=== PATIENT | female | born 1940 | race Hispanic/Latino ===

== ENCOUNTER 2017-09-15 20:14 | Emergency (ER) | payer MEDICARE ==
[2017-09-15 20:15] VITALS: BMI 24.1
[2017-09-15 20:24] VITALS: RESP 18
--- NOTE | 2017-09-15 21:28 | ED PDOC ---
HPI: Trauma/Fall - HPI Time Seen by Provider: 09/15/17 20:59 Chief Complaint (Nursing): Trauma Chief Complaint (Provider): Fall injury History Per: Patient History/Exam Limitations: no limitations Onset/Duration Of Symptoms: Hrs (today) Injury Occurred (Timing): Just Before Arrival Location Of Injury: Right: Arm, Shoulder Additional Complaint(s): Kendra Orona is a 77 year old female, with a past medical history of hypertension and diabetes, who was brought to the emergency department by EMS for right shoulder pain s/p fall onset prior to arrival. Patient reports she was walking when she accidentally tripped on the sidewalk and landed on her right shoulder. Patient states she also scraped her left hand but denies any head injuries, dizziness, weakness, numbness or tingling, abdominal pain, nausea , vomit, diarrhea, chest pain or shortness of breath. No further medical complaints. No neck pain. PMD: Jluis Abarca V - Fall Fall:Prior To Injury: Tripped Past Medical History Reviewed: Historical Data, Nursing Documentation, Vital Signs Vital Signs: Last Vital Signs Temp 98.3 F 09/15/17 20:21 Pulse 66 09/15/17 20:21 Resp 18 09/15/17 20:21 BP 195/95 H 09/15/17 20:21 Pulse Ox 98 09/15/17 21:43 - Medical History PMH: Diabetes ("Prediabetes"), HTN, Hyperlipidemia - Surgical History Other surgeries: hip fracture repair - Family History Family History: States: Unknown Family Hx - Home Medications Home Medications: Ambulatory Orders Medication Instructions Recorded Ibuprofen [Motrin] 600 mg PO TID 7 Days tab 09/15/17 oxyCODONE/Acetaminophen [Percocet 1 ea PO BID PRN #8 tab 09/15/17 5/325 mg Tab] - Allergies Allergies/Adverse Reactions: Allergies Allergy/AdvReac Type Severity Reaction Status Date / Time clindamycin Allergy RASH Verified 12/23/15 01:52 erythromycin base Allergy RASH Verified 12/23/15 01:52 Review of Systems ROS Statement: Except As Marked, All Systems Reviewed And Found Negative Cardiovascular: Negative for: Chest Pain Respiratory: Negative for: Shortness of Breath Gastrointestinal: Negative for: Nausea, Vomiting, Abdominal Pain, Diarrhea Musculoskeletal: Positive for: Shoulder Pain (right ) Neurological: Negative for: Weakness, Numbness (or tingling), Dizziness Physical Exam - Reviewed Nursing Documentation Reviewed: Yes Vital Signs Reviewed: Yes - Physical Exam Appears: Positive for: Non-toxic, No Acute Distress Head Exam: Positive for: ATRAUMATIC, NORMOCEPHALIC Skin: Positive for: Normal Color, Warm, Dry Eye Exam: Positive for: Normal appearance, EOMI, PERRL Neck: Positive for: Painless ROM, Supple (nontender) Cardiovascular/Chest: Positive for: Regular Rate, Rhythm. Negative for: Murmur Respiratory: Positive for: Normal Breath Sounds. Negative for: Respiratory Distress Pulses-Radial (L): 2+ Pulses-Radial (R): 2+ Gastrointestinal/Abdominal: Positive for: Normal Exam, Soft. Negative for: Tenderness Back: Negative for: L CVA Tenderness, R CVA Tenderness, Vertebral Tenderness Extremity: Positive for: Normal ROM (elbow and shoulder ), Tenderness ( Tenderness to right bicep. No elbow, shoulder, forearm, wrist or hand tenderness.), Other (left hand dorsal 2nd & 3rd digit knuckles hematoma and abrasions with good radial pulse; nontender.). Negative for: Deformity, Swelling Neurologic/Psych: Positive for: Alert, Oriented (x3). Negative for: Motor/ Sensory Deficits - ECG O2 Sat by Pulse Oximetry: 98 (RA) Pulse Ox Interpretation: Normal - Radiology X-Ray: Interpreted by Me, Viewed By Me X-Ray Interpretation: Fracture - Progress ED Course And Treament: 2235: Stable. AAOx3. Pain controlled. Dr. Bro reviewed images. Wants pt. to be put in a sling and fu in office. PM Aware reviewed. No search results for pt. Aware of possible or decreased functioning from opiate addiction. Medical Decision Making Medical Decision Making: Time: 20:59 Initial Impression: Fall injuries Initial Plan: --Motrin tab 600 mg PO --Humerus Right [RAD] --Shoulder right [RAD] --Reevaluation ~ Scribe Attestation: Documented by Mega Tobar, acting as a scribe for Roger Griffith MD. Provider Scribe Attestation: All medical record entries made by the Scribe were at my direction and personally dictated by me. I have reviewed the chart and agree that the record accurately reflects my personal performance of the history, physical exam, medical decision making, and the department course for this patient. I have also personally directed, reviewed, and agree with the discharge instructions and disposition. Procedures - Splinting Location: R arm Pre-Made Type: sling R arm Pre-Proc Neuro Vasc Exam: normal Post-Proc Neuro Vasc Exam: normal Progress: Tolerated well. Disposition - Clinical Impression Clinical Impression: Abrasion, Shoulder fracture - Patient ED Disposition Is Patient to be Admitted: No Counseled Patient/Family Regarding: Studies Performed, Diagnosis, Need For Followup, Rx Given - Disposition Referrals: [facility] [Outside] - 09/16/17 Rikki Bro MD [Staff Provider] - 09/16/17 Disposition: Routine/Home Disposition Time: 22:39 Condition: STABLE Additional Instructions: Return if not better in 3 days. See the orthopedic doctor in 3 days. You are aware of opiate abuse potential and you can from that. Be mindful in using the percocet. Prescriptions: Ibuprofen [Motrin] 600 mg PO TID 7 Days tab oxyCODONE/Acetaminophen [Percocet 5/325 mg Tab] 1 ea PO BID PRN #8 tab PRN Reason: Muscle Pain Instructions: Shoulder Fracture Forms: [facility] (Grenadian)
[2017-09-15] MEDS ORDERED: Oxycodone/Acetaminophen 5/325 mg Tab PO ONE (22:21)
[2017-09-16 01:46] VITALS: BP 142/78; PULSE 68; TEMP 98.4; O2SAT 99
--- NOTE | 2017-09-16 09:35 | RAD ---
PROCEDURE: Radiographs of the right humerus. HISTORY: fall and pain COMPARISON: None. FINDINGS: BONES: Comminuted fracture of the proximal humeral metaphysis with angulation and displacement of the greater and lesser tuberosities. SOFT TISSUES: Normal. OTHER FINDINGS: None. IMPRESSION: Comminuted, angulated, displaced fracture of the proximal humerus as described above.
--- NOTE | 2017-09-16 09:36 | RAD ---
PROCEDURE: Radiographs of the Right Shoulder HISTORY: shoulder pain COMPARISON: No prior. FINDINGS: BONES: Comminuted, angulated fracture of the proximal humeral metaphysis with displacement of the greater and lesser tuberosities. JOINTS: Degenerative changes. SOFT TISSUES: Normal. OTHER FINDINGS: None. IMPRESSION: Comminuted, angulated, displaced fracture of the proximal humerus as described above.
== END 2017-09-16 01:20 | disposition home or self-care (01) ==
LOC: H.ER 20:14
DX: S42.91XA Fracture of right shoulder girdle, part unspecified, initial encounter for closed fracture (principal); W01.0XXA Fall on same level from slipping, tripping and stumbling without subsequent striking against object, initial encounter; Y92.480 Sidewalk as the place of occurrence of the external cause; E11.9 Type 2 diabetes mellitus without complications; E78.5 Hyperlipidemia, unspecified; I10 Essential (primary) hypertension; Z88.1 Allergy status to other antibiotic agents

== ENCOUNTER 2018-02-04 17:10 | Emergency (ER) | payer MEDICARE ==
[2018-02-04 17:17] VITALS: BP 152/83; PULSE 76; RESP 16; TEMP 98; O2SAT 98
[2018-02-04 17:18] VITALS: BMI 23.9
--- NOTE | 2018-02-04 17:49 | ED PDOC ---
HPI: Trauma/Fall - HPI Time Seen by Provider: 02/04/18 17:29 Chief Complaint (Nursing): Trauma Chief Complaint (Provider): Trauma History Per: Patient History/Exam Limitations: no limitations Injury Occurred (Timing): Just Before Arrival Location Of Injury: Left: Hip Additional Complaint(s): Kendra Orona is a 77 year old female with a past medical history of arrhythmias, heart attacks, HLD, and HTN, who presents to the emergency department for a left hip injury after sustaining a fall. Patient states she was at a [employer] service when she was using her walker and leaning against a door. She states that a bystander opened the door she was leaning on, causing her to fall on her side and injure her left hip. Patient states she was worried because she felt soreness and pain on her left hip area close to where she had a prior surgery. Patient is able to walk and put weight on the leg. She denies hitting her head, shortness of breath, loss of consciousness, abdominal pain or vomiting. PMD: Radha Abarca - Fall Fall:Prior To Injury: Lost Balance. denies: Passed Out Past Medical History Reviewed: Historical Data, Nursing Documentation, Vital Signs Vital Signs: Last Vital Signs Temp 98 F 02/04/18 17:17 Pulse 76 02/04/18 17:17 Resp 16 02/04/18 17:17 BP 152/83 H 02/04/18 17:17 Pulse Ox 98 02/04/18 17:17 - Medical History PMH: Asthma, Cardia Arrhythmia, Diabetes ("Prediabetes"), Fractures, HTN, Hyperlipidemia - Surgical History Other surgeries: right arm and left leg surgery. left sided mastectomy - Family History Family History: States: Unknown Family Hx - Home Medications Home Medications: Ambulatory Orders Medication Instructions Recorded Ibuprofen [Motrin] 600 mg PO TID 7 Days tab 09/15/17 oxyCODONE/Acetaminophen [Percocet 1 ea PO BID PRN #8 tab 09/15/17 5/325 mg Tab] - Allergies Allergies/Adverse Reactions: Allergies Allergy/AdvReac Type Severity Reaction Status Date / Time clindamycin Allergy RASH Verified 12/23/15 01:52 erythromycin base Allergy RASH Verified 12/23/15 01:52 Review of Systems ROS Statement: Except As Marked, All Systems Reviewed And Found Negative Respiratory: Negative for: Shortness of Breath Gastrointestinal: Negative for: Vomiting, Abdominal Pain Musculoskeletal: Positive for: Leg Pain (left upper leg pain with soreness ) Neurological: Negative for: Numbness, Headache, Dizziness Physical Exam - Reviewed Nursing Documentation Reviewed: Yes Vital Signs Reviewed: Yes - Physical Exam Appears: Positive for: Non-toxic, No Acute Distress Head Exam: Positive for: ATRAUMATIC, NORMOCEPHALIC Skin: Positive for: Normal Color, Warm, Dry Eye Exam: Positive for: Normal appearance, EOMI, PERRL Neck: Positive for: Normal, Painless ROM, Supple Cardiovascular/Chest: Positive for: Regular Rate, Rhythm. Negative for: Murmur Respiratory: Positive for: Normal Breath Sounds. Negative for: Respiratory Distress Pulses-Dorsalis Pedis (L): 2+ Pulses-Dorsalis Pedis (R): 2+ Gastrointestinal/Abdominal: Positive for: Normal Exam, Soft. Negative for: Tenderness Pelvic Exam: Positive for: Other (Good ROM; tenderness on left hip; pain on rotation of left hip; ) Back: Positive for: Normal Inspection. Negative for: L CVA Tenderness, R CVA Tenderness, Vertebral Tenderness Extremity: Positive for: Normal ROM, Tenderness (mild left hip with full ROM; ). Negative for: Deformity Neurologic/Psych: Positive for: Alert, Oriented (x3). Negative for: Motor/Sensory Deficits - ECG O2 Sat by Pulse Oximetry: 98 (RA) Pulse Ox Interpretation: Normal - Progress ED Course And Treament: 1859: Stable. AAOx3. Pain free. Tolerated PO. Did not want pain meds. Ambulated with no issues. Medical Decision Making Medical Decision Making: Initial Time: 17:40 Initial Plan: --Left Hip x-ray Scribe Attestation: Documented by Dheeraj Linares, acting as a scribe for Roger Griffith MD. Provider Scribe Attestation: All medical record entries made by the Scribe were at my direction and personally dictated by me. I have reviewed the chart and agree that the record accurately reflects my personal performance of the history, physical exam, medical decision making, and the department course for this patient. I have also personally directed, reviewed, and agree with the discharge instructions and disposition. Disposition - Clinical Impression Clinical Impression: Hip injury - Patient ED Disposition Is Patient to be Admitted: No Counseled Patient/Family Regarding: Studies Performed, Diagnosis, Need For Followup - Disposition Referrals: Radha Abarca MD [Primary Care Provider] - 02/06/18 Disposition: Routine/Home Disposition Time: 19:00 Condition: STABLE Additional Instructions: Return if not better in 3 days. Instructions: Hip Pain Forms: [facility] (Korean)
--- NOTE | 2018-02-05 15:37 | RAD ---
PROCEDURE: Frontal view of the pelvis and frontal/frogleg lateral views of the left hip performed. HISTORY: pain COMPARISON: None. FINDINGS: BONES: Redemonstrated is a compression screw traversing the left femoral neck attached to a intramedullary fixation tanya left femur. Hardware intact. No evidence of acute displaced fracture nor dislocation. JOINTS: Degenerative changes both hip joints. SOFT TISSUES: Normal. OTHER FINDINGS: None. IMPRESSION: Redemonstrated is a compression screw traversing the left femoral neck attached to a intramedullary fixation tanya left femur. Hardware intact. No evidence of acute displaced fracture nor dislocation... Degenerative changes both hip joints.
== END 2018-02-04 19:15 | disposition home or self-care (01) ==
LOC: H.ER 17:10 → SUPCPDRO 17:10 → H.ER 19:15
DX: S79.912A Unspecified injury of left hip, initial encounter (principal); J45.909 Unspecified asthma, uncomplicated; E11.9 Type 2 diabetes mellitus without complications; I10 Essential (primary) hypertension; Z88.1 Allergy status to other antibiotic agents; E78.5 Hyperlipidemia, unspecified; W18.39XA Other fall on same level, initial encounter; Y92.22 Religious institution as the place of occurrence of the external cause

== ENCOUNTER 2018-03-14 17:09 | Observation (INO) | payer MEDICARE ==
[2018-03-14 17:09] VITALS: BMI 23.9
[2018-03-14 18:34] LABS: ALB/GLOB RATIO 1.4 (1.0-2.1); ALBUMIN 4.3 g/dL (3.5-5.0); CALCIUM 9.5 mg/dL (8.4-10.2)
[2018-03-14 18:39] LABS: BASO % 0.6 % (0.0-2.0); EOS # 0.2 K/uL (0.0-0.7); EOS % 3.1 % (0.0-4.0); HEMOGLOBIN 10.7 g/dL (12.0-16.0); LYMPH # 1.2 K/uL (1.0-4.3); LYMPH % 17.4 % (20.0-40.0); MEAN CELL VOLUME 92.8 fl (81.0-99.0); MEAN CORPUSCULAR HEMOGLOBIN 30.5 pg (27.0-31.0); MEAN CORPUSCULAR HGB CONC 32.9 g/dL (33.0-37.0); MEAN PLATELET VOLUME 8.3 fl (7.2-11.7); MONO # 0.6 K/uL (0.0-0.8); MONO % 8.5 % (0.0-10.0); NEUT # 4.8 K/uL (1.8-7.0); NEUT % 70.4 % (50.0-75.0); RBC 3.49 Mil/uL (3.80-5.20); RED CELL DISTRIBUTION WIDTH 15.7 % (11.5-14.5); WHITE BLOOD COUNT 6.8 K/uL (4.8-10.8)
[2018-03-14 18:43] LABS: INR 0.9; PROTHROMBIN TIME 10.7 Seconds (9.8-13.1)
[2018-03-14 18:46] LABS: PARTIAL THROMBOPLASTIN TIME 30.2 Seconds (25.6-37.1)
--- NOTE | 2018-03-14 18:48 | ED PDOC ---
HPI: Female Pain Time Seen by Provider: 03/14/18 17:50 Chief Complaint (Nursing): GI Problem Chief Complaint (Provider): GI Problem History Per: Patient History/Exam Limitations: no limitations Onset/Duration Of Symptoms: Sudden Onset Current Symptoms Are (Timing): Better Additional Complaint(s): 78 year old female with pmHx of HTN, DM, and CAD, presents to the ED for an evaluation after finding blood upon wiping herself after a bowel movement prior to arrival. Patient reports that some blood dripped onto the floor but eventually stopped on its own. She denies any rectal pain, abdominal pain, constipation, diarrhea, fever, chills, dysuria, hematuria, prior similar symptoms, vaginal pain or discharge. She further denies any recent colonoscopy. PCP: none provided Cardio: Dr. Jluis Abarca Past Medical History Reviewed: Historical Data, Nursing Documentation, Vital Signs Vital Signs: Last Vital Signs Temp 98.2 F 03/14/18 17:20 Pulse 84 03/14/18 17:20 Resp 18 03/14/18 17:20 BP 158/89 H 03/14/18 17:20 Pulse Ox 98 03/14/18 17:20 - Medical History PMH: Asthma, Cardia Arrhythmia, Diabetes ("Prediabetes"), Fractures (right hip/ right shoulder), HTN, Hyperlipidemia, Malignancy (left breast CA) Denies: Chronic Kidney Disease - Surgical History Other surgeries: right shoulder; left hip; left mastectomy - Family History Family History: States: Unknown Family Hx - Home Medications Home Medications: Ambulatory Orders Medication Instructions Recorded Aspirin [Lo-Dose Aspirin EC] 81 mg PO DAILY 03/14/18 Lisinopril/Hydrochlorothiazide 1 each PO DAILY 03/14/18 [Lisinopril-Hctz 10-12.5 mg Tab] RX: Atorvastatin [Lipitor] 40 mg PO DAILY 03/14/18 RX: Metoprolol Succinate XL 25 mg PO DAILY 03/14/18 [Toprol XL] RX: metFORMIN [glucOPHAGE] 500 mg PO BID 03/14/18 - Allergies Allergies/Adverse Reactions: Allergies Allergy/AdvReac Type Severity Reaction Status Date / Time clindamycin Allergy RASH Verified 12/23/15 01:52 erythromycin base Allergy RASH Verified 12/23/15 01:52 pregabalin [From Lyrica] Allergy RASH Verified 03/14/18 17:20 Review of Systems ROS Statement: Except As Marked, All Systems Reviewed And Found Negative Constitutional: Negative for: Fever, Chills Gastrointestinal: Negative for: Abdominal Pain, Diarrhea, Constipation, Rectal Pain Genitourinary Female: Negative for: Dysuria, Hematuria, Vaginal Discharge, Vagi nal Bleeding Physical Exam - Reviewed Nursing Documentation Reviewed: Yes Vital Signs Reviewed: Yes - Physical Exam Appears: Positive for: Non-toxic, No Acute Distress Head Exam: Positive for: ATRAUMATIC, NORMAL INSPECTION, NORMOCEPHALIC Skin: Positive for: Normal Color Eye Exam: Positive for: Normal appearance ENT: Positive for: Normal ENT Inspection Neck: Positive for: Normal Cardiovascular/Chest: Positive for: Regular Rate, Rhythm Respiratory: Positive for: Normal Breath Sounds. Negative for: Respiratory Distress Gastrointestinal/Abdominal: Positive for: Normal Exam, Soft. 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 Negative for: Black Stool, Tenderness Extremity: Positive for: Tenderness (with rotation of right shoulder). Negative for: Swelling (or erythema to right shoulder) Neurologic/Psych: Positive for: Alert, Oriented - Laboratory Results Result Diagrams: 03/15/18 05:45 03/14/18 18:15 - ECG O2 Sat by Pulse Oximetry: 98 (RA) Pulse Ox Interpretation: Normal Medical Decision Making Medical Decision Making: Initial Impression: Possible rectal bleed Differential Diagnosis: Hemorrhoid; diverticulosis; other GI bleed Initial Plan: * Labs * CT ABD/pelvis Time: 2024 --CT ABD/pelvis FINDINGS: LUNG BASES: Scarring of the lung bases. Note is made of coronary artery calcification. LIVER: Unremarkable. GALLBLADDER AND BILE DUCTS: Multiple gallstones are present. PANCREAS: Unremarkable. SPLEEN: Unremarkable. ADRENAL GLANDS: Unremarkable. KIDNEYS, URETERS, AND BLADDER: The kidneys appear within normal limits. There is no hydronephrosis or hydroureter. No urinary calculi are seen. Note is made that the uterus is not well evaluated due to adjacent loops of bowel. STOMACH AND BOWEL: Unremarkable appearance of the stomach .. No evidence of bowel obstruction. No evidence suggesting enteritis or colitis. Mild diverticular changes present sigmoid colon. There appears to be some eccentric thickening of the posterior wall of the rectum. APPENDIX: No evidence of acute appendicitis on CT examination. PERITONEUM: No free fluid. No free air. LYMPH NODES: No lymphadenopathy is evident. VASCULATURE: No evidence of abdominal aortic aneurysm. BONES: No aggressive appearing osseous lesion. No acute osseous pathology evident. Postsurgical changes are seen at the left proximal femur and visualized right proximal humerus. Hypertrophic and degenerative change lumbar spine with compression deformity of the L1 vertebral body likely chronic in nature. IMPRESSION: No acute intra-abdominal abnormality. Gallstones. Mild diverticular changes sigmoid colon as well as apparent mild thickening of the posterior wall of the rectum. Uterus not well evaluated due to adjacent loops of bowel. Postsurgical changes left proximal femur and likely at the right proximal humerus. Hyp ertrophic and degenerative changes lumbar spine with compression deformity of the L1 vertebral body. Clinical correlation advised. Scribe Attestation: Documented by Elke Tarango, acting as a scribe for Petra Fontenot MD. Provider Scribe Attestation: All medical record entries made by the Scribe were at my direction and personally dictated by me. I have reviewed the chart and agree that the record accurately reflects my personal performance of the history, physical exam, medical decision making, and the department course for this patient. I have also personally directed, reviewed, and agree with the discharge instructions and disposition. Disposition - Clinical Impression Clinical Impression: Gastrointestinal hemorrhage - Patient ED Disposition Is Patient to be Admitted: Yes Discussed With : Jluis Abarca Doctor Will See Patient In The: Hospital Counseled Patient/Family Regarding: Studies Performed, Diagnosis - Disposition Disposition Time: 20:40 Condition: FAIR - Pt Status Changed To: Hospital Disposition Of: Observation - POA Present On Arrival: None
[2018-03-15 06:27] LABS: HEMOGLOBIN 9.8 g/dL (12.0-16.0); MEAN CELL VOLUME 94.7 fl (81.0-99.0); MEAN CORPUSCULAR HEMOGLOBIN 30.7 pg (27.0-31.0); MEAN CORPUSCULAR HGB CONC 32.4 g/dL (33.0-37.0); RBC 3.19 Mil/uL (3.80-5.20); RED CELL DISTRIBUTION WIDTH 15.3 % (11.5-14.5); WHITE BLOOD COUNT 5.2 K/uL (4.8-10.8)
--- NOTE | 2018-03-15 09:33 | CP.PCM.HP ---
History of Present Illness - History of Present Illness History of Present Illness: This 78-year-old female came to the emergency room after having experienced painless bright red bleeding per rectum yesterday. The patient denies any diarrhea or abdominal pain or fever preceding this event. She has had coronary artery disease with an old lateral wall myocardial infarction approximately 10 years back. Subsequently she has been on aspirin. She had developed diabetes and hypertension for which she has taken medications regularly. She has had a mastectomy for carcinoma of the breast approximately 8 years back and she has been in remission. There has been a history of his hospital back 2 years back followed by severe depression and weight loss which has subsequently resolved. There has been a recent fall during which she fractured her humerus which was surgically reset. She has never been a smoker and has never experienced congestive cardiac failure. She has not had a colonoscopy for over 10 years. There is no family history of colonic malignancy. Physical examination shows a pleasant elderly female who reports no further rectal bleeding since yesterday evening even though she has moved her bowels couple of times. She is alert awake coherent afebrile and lying virtually flat in bed and able to carry on a conversation. She had a heart rate of 74 bpm regular and a blood pressure of 144/74 mmHg. Her jugular venous pressure was not elevated and there was no edema over lower extremity. The pedal pulses were feeble but distinct of present. There were no carotid bruits. The apex was not palpable. There was evidence of a mastectomy. First and second heart sounds were normal. There was no murmur or gallop. There were no rales. Her abdomen was soft. There was no abdominal mass felt there was no area of tenderness guarding or rigidity. Rectal examination was deferred. Her labs were noted. Her hemoglobin has dropped from 10.6 g to 9.8 g this morning. There is no leukocytosis. Rest of her labs were noted. Impression: Painless rectal bleeding of uncertain origin. Stable coronary artery disease with old lateral wall myocardial infarction. Hypertension and diabetes. Status post mastectomy for carcinoma of the breast which is in remission. Recent fall with fractured humerus. The patient has been seen by milk pasteurizer who plans to carry out a colonoscopy tomorrow. Present on Admission - Present on Admission Any Indicators Present on Admission: No Past Patient History - Infectious Disease Hx of Infectious Diseases: None - Past Medical History & Family History Past Medical History?: Yes - Past Social History Smoking Status: Never Smoked - CARDIAC Hx Cardia Arrhythmia: Yes Hx Hypertension: Yes - PULMONARY Hx Asthma: Yes - NEUROLOGICAL Hx Neurological Disorder: No - HEENT Hx HEENT Problems: No - RENAL Hx Chronic Kidney Disease: No - ENDOCRINE/METABOLIC Hx Endocrine Disorders: Yes Hx Diabetes Mellitus Type 2: Yes - HEMATOLOGICAL/ONCOLOGICAL Hx Blood Disorders: Yes Hx Anemia: Yes Hx Shingles: Yes - INTEGUMENTARY Hx Dermatological Problems: No - MUSCULOSKELETAL/RHEUMATOLOGICAL Hx Falls: Yes Hx Fractures: Yes (left hip/ right shoulder) - GASTROINTESTINAL Hx Gastrointestinal Disorders: No - GENITOURINARY/GYNECOLOGICAL Hx Genitourinary Disorders: No - PSYCHIATRIC Hx Psychophysiologic Disorder: No Hx Substance Use: No - SURGICAL HISTORY Hx Surgeries: Yes Hx Coronary Stent: Yes (x2) Hx Mastectomy: Yes (left side) Hx Orthopedic Surgery: Yes Other/Comment: right shoulder and Left hip - ANESTHESIA Hx Anesthesia: Yes Hx Anesthesia Reactions: No Hx Malignant Hyperthermia: No Has any member of the family had a problem w/ anesthesia?: No Meds Allergies/Adverse Reactions: Allergies Allergy/AdvReac Type Severity Reaction Status Date / Time clindamycin Allergy RASH Verified 12/23/15 01:52 erythromycin base Allergy RASH Verified 12/23/15 01:52 pregabalin [From Lyrica] Allergy RASH Verified 03/14/18 17:20 Results - Vital Signs Recent Vital Signs: Last Vital Signs Temp 97.5 F L 03/15/18 07:52 Pulse 67 03/15/18 07:52 Resp 20 03/15/18 07:52 BP 161/77 H 03/15/18 07:52 Pulse Ox 96 03/15/18 07:52 - Labs Result Diagrams: 03/15/18 05:45 03/14/18 18:15 Labs: Laboratory Results - last 24 hr 03/14/18 03/14/18 03/14/18 18:15 18:15 18:30 WBC 6.8 RBC 3.49 L Hgb 10.7 L Hct 32.4 L MCV 92.8 MCH 30.5 MCHC 32.9 L RDW 15.7 H Plt Count 220 MPV 8.3 Neut % (Auto) 70.4 Lymph % (Auto) 17.4 L Lewis % (Auto) 8.5 Eos % (Auto) 3.1 Baso % (Auto) 0.6 Neut # (Auto) 4.8 Lymph # (Auto) 1.2 Lewis # (Auto) 0.6 Eos # (Auto) 0.2 Baso # (Auto) 0.0 PT INR APTT Sodium 143 Potassium 4.5 Chloride 107 Carbon Dioxide 24 Anion Gap 17 BUN 26 H Creatinine 1.3 H Est GFR ( Amer) 48 Est GFR (Non-Af Amer) 40 POC Glucose (mg/dL) Random Glucose 104 Calcium 9.5 Total Bilirubin 0.9 AST 34 ALT 23 Alkaline Phosphatase 93 Total Protein 7.4 Albumin 4.3 Globulin 3.1 Albumin/Globulin Ratio 1.4 Lipase 106 Blood Type A POSITIVE Antibody Screen Negative BBK History Checked Patient has bt 03/14/18 03/15/18 03/15/18 18:30 05:45 05:57 WBC 5.2 RBC 3.19 L Hgb 9.8 L Hct 30.2 L MCV 94.7 MCH 30.7 MCHC 32.4 L RDW 15.3 H Plt Count 182 MPV Neut % (Auto) Lymph % (Auto) Lewis % (Auto) Eos % (Auto) Baso % (Auto) Neut # (Auto) Lymph # (Auto) Lewis # (Auto) Eos # (Auto) Baso # (Auto) PT 10.7 INR 0.9 APTT 30.2 Sodium Potassium Chloride Carbon Dioxide Anion Gap BUN Creatinine Est GFR ( Amer) Est GFR (Non-Af Amer) POC Glucose (mg/dL) 74 Random Glucose Calcium Total Bilirubin AST ALT Alkaline Phosphatase Total Protein Albumin Globulin Albumin/Globulin Ratio Lipase Blood Type Antibody Screen BBK History Checked
[2018-03-15] MEDS: Metoprolol Succinate 25 mg XL Tab PO SCH (10:35)
--- NOTE | 2018-03-15 11:04 | CT ---
Date of service: 03/14/2018 PROCEDURE: CT Abdomen and Pelvis without intravenous contrast HISTORY: rectal bleeding COMPARISON: 07/14/2010 TECHNIQUE: Unenhanced. Neither IV nor oral contrast administered Radiation dose: Total exam DLP = 868.73 mGy-cm. This CT exam was performed using one or more of the following dose reduction techniques: Automated exposure control, adjustment of the mA and/or kV according to patient size, and/or use of iterative reconstruction technique. FINDINGS: LOWER THORAX: Unremarkable. LIVER: Unremarkable. No gross lesion or ductal dilatation. GALLBLADDER AND BILE DUCTS: Cholelithiasis without CT evidence of acute cholecystitis. PANCREAS: Unremarkable. No gross lesion or ductal dilatation. SPLEEN: Unremarkable. ADRENALS: Unremarkable. No mass. KIDNEYS AND URETERS: Unremarkable. No hydronephrosis. No solid mass. VASCULATURE: Atherosclerotic calcification and mural plaque present. Findings are seen throughout the aorta . No aortic aneurysm. BOWEL: Diverticulosis without an acute inflammatory component or other associated pathologic process. Constipation without fecal impaction or obstruction. APPENDIX: No abnormalities to suggest acute appendicitis. No right lower quadrant inflammatory processes identified. PERITONEUM: Unremarkable. No free fluid. No free air. LYMPH NODES: Unremarkable. No enlarged lymph nodes. BLADDER: Unremarkable. REPRODUCTIVE: Unremarkable. BONES: No acute fracture. Multiple stable thoracolumbar compression fractures. OTHER FINDINGS: None. IMPRESSION: Cholelithiasis without CT evidence of acute cholecystitis. Gallstones were seen on the prior CT scan. Additional benign and/or incidental findings described above. Concordant results (preliminary interpretation) provided by [facility]. Procedure Completed: 19:55. Preliminary Report: Dictated and Authenticated: 20:25. Final Interpretation: 11:00. March 15, 2018
--- NOTE | 2018-03-15 11:07 | CARD ---
APPROVED REPORT Date of service: 03/15/2018 EKG Measurement Heart [id number] <Conclusion> Sinus rhythm with 1st degree AV block Right bundle branch block Lateral infarct, age undetermined Abnormal ECG
[2018-03-15] MEDS ORDERED: Magnesium Citrate Oral SOL (300 ml) PO ONE ×2 (13:00→19:00)
[2018-03-15] MEDS ORDERED: Bisacodyl 5mg EC Tab PO ONE (16:00)
[2018-03-15 17:04] LABS: HEMOGLOBIN 11.4 g/dL (12.0-16.0); MEAN CELL VOLUME 91.6 fl (81.0-99.0); MEAN CORPUSCULAR HEMOGLOBIN 30.5 pg (27.0-31.0); MEAN CORPUSCULAR HGB CONC 33.3 g/dL (33.0-37.0); RBC 3.72 Mil/uL (3.80-5.20); RED CELL DISTRIBUTION WIDTH 14.7 % (11.5-14.5)
--- NOTE | 2018-03-15 22:07 | CP.PCM.CON ---
History of Present Illness - History of Present Illness History of Present Illness: 78 yo female admitted with rectal bleeding and anemia. Noted the rectal bleeding yesterday with a firm bowel movement. In general she had had increased difficulty moving her bowels lately wlth reduced physical activity due to shoulder and hip injuries. Has past history of breast cancer. Last colonoscopy more than 10 years ago. Had an [facility] about than 10 years ago. More recently had unergone catheter ablation for a fib and has been on ASA. Review of Systems - Constitutional Constitutional: absent: Chills - EENT Eyes: absent: Blurred Vision Ears: absent: Ear Discharge Nose/Mouth/Throat: absent: Epistaxis - Cardiovascular Cardiovascular: absent: Chest Pain - Respiratory Respiratory: absent: Dyspnea - Gastrointestinal Gastrointestinal: Constipation. absent: Abdominal Pain, Heartburn Past Patient History - Infectious Disease Hx of Infectious Diseases: None - Past Medical History & Family History Past Medical History?: Yes - Past Social History Smoking Status: Never Smoked - CARDIAC Hx Cardia Arrhythmia: Yes Hx Hypertension: Yes - PULMONARY Hx Asthma: Yes - NEUROLOGICAL Hx Neurological Disorder: No - HEENT Hx HEENT Problems: No - RENAL Hx Chronic Kidney Disease: No - ENDOCRINE/METABOLIC Hx Endocrine Disorders: Yes Hx Diabetes Mellitus Type 2: Yes - HEMATOLOGICAL/ONCOLOGICAL Hx Blood Disorders: Yes Hx Anemia: Yes Hx Shingles: Yes - INTEGUMENTARY Hx Dermatological Problems: No - MUSCULOSKELETAL/RHEUMATOLOGICAL Hx Fractures: Yes (right hip/ right shoulder) - GASTROINTESTINAL Hx Gastrointestinal Disorders: No - GENITOURINARY/GYNECOLOGICAL Hx Genitourinary Disorders: No - PSYCHIATRIC Hx Psychophysiologic Disorder: No Hx Substance Use: No - SURGICAL HISTORY Hx Surgeries: Yes Hx Coronary Stent: Yes (x2) Hx Mastectomy: Yes (left side) Hx Orthopedic Surgery: Yes Other/Comment: right shoulder and Left hip - ANESTHESIA Hx Anesthesia: Yes Hx Anesthesia Reactions: No Hx Malignant Hyperthermia: No Has any member of the family had a problem w/ anesthesia?: No Meds Allergies/Adverse Reactions: Allergies Allergy/AdvReac Type Severity Reaction Status Date / Time clindamycin Allergy RASH Verified 12/23/15 01:52 erythromycin base Allergy RASH Verified 12/23/15 01:52 pregabalin [From Lyrica] Allergy RASH Verified 03/14/18 17:20 - Medications Medications: Current Medications Atorvastatin Calcium (Lipitor) 40 mg PO DAILY [facility] Last Admin: 03/15/18 10:35 Dose: 40 mg Hydrochlorothiazide (Microzide) 12.5 mg PO DAILY [facility] Last Admin: 03/15/18 10:35 Dose: 12.5 mg Lactated Ringer's (Lactated Ringer's) 1,000 mls @ 60 mls/hr IV .[id number] [facility] Lisinopril (Zestril) 10 mg PO DAILY [facility] Last Admin: 03/15/18 10:37 Dose: 10 mg Metformin HCl (Glucophage) 500 mg PO BIDWM [facility] Last Admin: 03/15/18 16:28 Dose: 500 mg Metoprolol Succinate (Toprol Xl) 25 mg PO DAILY [facility] Last Admin: 03/15/18 10:35 Dose: 25 mg Physical Exam - Head Exam Head Exam: ATRAUMATIC - Eye Exam Eye Exam: Normal appearance - ENT Exam ENT Exam: Normal Exam - Neck Exam Neck exam: Positive for: Normal Inspection - Respiratory Exam Respiratory Exam: NORMAL BREATHING PATTERN - Cardiovascular Exam Cardiovascular Exam: +S1, +S2 Results - Vital Signs Recent Vital Signs: Last Vital Signs Temp 98.1 F 03/15/18 16:37 Pulse 70 03/15/18 16:37 Resp 18 03/15/18 16:37 BP 164/88 H 03/15/18 16:37 Pulse Ox 96 03/15/18 16:37 - Labs Result Diagrams: 03/15/18 15:53 03/14/18 18:15 Labs: Laboratory Results - last 24 hr 03/15/18 03/15/18 03/15/18 05:45 05:57 10:44 WBC 5.2 RBC 3.19 L Hgb 9.8 L Hct 30.2 L MCV 94.7 MCH 30.7 MCHC 32.4 L RDW 15.3 H Plt Count 182 POC Glucose (mg/dL) 74 105 03/15/18 03/15/18 15:53 15:56 WBC 6.0 RBC 3.72 L Hgb 11.4 L Hct 34.1 MCV 91.6 D MCH 30.5 MCHC 33.3 RDW 14.7 H Plt Count 239 POC Glucose (mg/dL) 78 - Imaging and Cardiology CT scan - abdomen Status: Report reviewed by me Assessment & Plan (1) Gastrointestinal hemorrhage Assessment and Plan: 78 yo female with rectal blled and normocytic anemia. R/o polyp, colitis. or mas s. For colonoscopy tomorrow. Procedure including benefits, risks ,and alternatives discussed. Status: Acute
[2018-03-15] MEDS: Lactated Ringer's 1,000 ML IV SCH (22:08)
[2018-03-16] MEDS ORDERED: Chlorhexidine Gluconate 1 APPL/PKT TP ONE (06:11)
[2018-03-16] MEDS: Metoprolol Succinate 25 mg XL Tab PO SCH ×2 (07:35→10:01)
[2018-03-16] MEDS ORDERED: Propofol 10 mg/ml Inj (20 ML) ONE (08:23)
[2018-03-16] MEDS ORDERED: Lactated Ringer's 500 ML IV ONE (08:24)
[2018-03-16 10:03] VITALS: TEMP 97.7
--- NOTE | 2018-03-16 10:09 | CP.PCM.PN ---
Subjective - Date & Time of Evaluation Date of Evaluation: 03/16/18 Time of Evaluation: 09:15 - Subjective Subjective: The patient underwent a colonoscopy this morning and the findings were benign. External hemorrhoids were detected but otherwise no active bleeding or any colonic mass was detected. Colonoscopic findings. Discussed with the station operator. Her blood count last evening showed a hemoglobin of 11.6 g. There has been no further rectal bleeding. Patient's vital signs have remained stable. The patient was seen and reassured post colonoscopy. She will be allowed to return home taking her current medications. Objective - Vital Signs/Intake and Output Vital Signs (last 24 hours): Temp Pulse Resp BP Pulse Ox 97.7 F 61 17 156/79 H 95 03/16/18 10:02 03/16/18 09:15 03/16/18 10:02 03/16/18 10:02 03/16/18 10:02 Intake and Output: 03/16/18 03/16/18 06:59 18:59 Intake Total 200 Balance 200 - Medications Medications: Current Medications Atorvastatin Calcium (Lipitor) 40 mg PO DAILY [facility] Last Admin: 03/16/18 10:00 Dose: 40 mg Hydrochlorothiazide (Microzide) 12.5 mg PO DAILY [facility] Last Admin: 03/16/18 10:01 Dose: 12.5 mg Lactated Ringer's (Lactated Ringer's) 1,000 mls @ 60 mls/hr IV .[id number] [facility] Last Admin: 03/15/18 22:08 Dose: 60 mls/hr Lisinopril (Zestril) 10 mg PO DAILY [facility] Last Admin: 03/16/18 10:00 Dose: 10 mg Metformin HCl (Glucophage) 500 mg PO BIDWM [facility] Last Admin: 03/16/18 07:29 Dose: Not Given Metoprolol Succinate (Toprol Xl) 25 mg PO DAILY [facility] Last Admin: 03/16/18 10:01 Dose: Not Given - Labs Labs: 03/15/18 15:53 03/14/18 18:15 PT 10.7 Seconds (9.8-13.1) 03/14/18 18:30 INR 0.9 03/14/18 18:30 APTT 30.2 Seconds (25.6-37.1) 03/14/18 18:30
[2018-03-16] MEDS: Lactated Ringer's 1,000 ML IV SCH (14:46)
[2018-03-16 16:36] VITALS: BP 154/71; PULSE 68; RESP 20; O2SAT 97
== END 2018-03-16 18:20 | disposition home or self-care (01) ==
LOC: H.ER 17:09 → H.ERHOLD 20:56 → H.MEDSURG1 03-15 01:20
PROVIDERS: ADMIT Internal Medicine Cardiovascular Disease; ATTEND Internal Medicine Cardiovascular Disease
DX: K92.2 Gastrointestinal hemorrhage, unspecified (principal); K64.8 Other hemorrhoids; D64.9 Anemia, unspecified; E11.9 Type 2 diabetes mellitus without complications; I25.10 Atherosclerotic heart disease of native coronary artery without angina pectoris; I10 Essential (primary) hypertension; I48.91 Unspecified atrial fibrillation; E78.5 Hyperlipidemia, unspecified; J45.909 Unspecified asthma, uncomplicated; Z23 Encounter for immunization; I25.2 Old myocardial infarction; Z95.5 Presence of coronary angioplasty implant and graft; Z85.3 Personal history of malignant neoplasm of breast; Z90.12 Acquired absence of left breast and nipple; Z79.82 Long term (current) use of aspirin
CPT/HCPCS: 36415; 45378; 74176; 80053; 82948; 83690; 85025; 85027; 85610; 85730; 86850; 86900; 93005; 99285; G0008; G0378; J2001; J2704; J7120; Q2035

== ENCOUNTER 2018-06-02 15:31 | Inpatient (IN) | payer MEDICARE ==
[2018-06-02 15:31] VITALS: BMI 23.9
--- NOTE | 2018-06-02 16:09 | ED PDOC ---
HPI: Trauma/Fall - HPI Time Seen by Provider: 06/02/18 15:49 Chief Complaint (Nursing): Trauma Chief Complaint (Provider): Trauma History Per: Patient History/Exam Limitations: no limitations Onset/Duration Of Symptoms: Sudden Onset Injury Occurred (Timing): Just Before Arrival Additional Complaint(s): 78 year old female with pmHx of cardiac ablation, arrives to ED for an evaluation status post trip and fall while walking on sidewalk prior to arrival. She reports injury to left side of face, skin, and wrist. Patient denies experiencing chest pain or palpitations prior to fall. Additionally, she denies any LOC or dizziness. Of note, patient has Hx of right shoulder and left hip surgery but does not report pain to those areas. PCP: none provided Cardiac: Dr. Jluis Abarca Past Medical History Reviewed: Historical Data, Nursing Documentation, Vital Signs Vital Signs: Last Vital Signs Temp 97.7 F 06/02/18 15:35 Pulse 72 06/02/18 15:35 Resp 18 06/02/18 15:35 BP 148/78 06/02/18 15:35 Pulse Ox 98 06/02/18 15:35 - Medical History PMH: Anemia, Asthma, CAD, Cardia Arrhythmia, Diabetes ("Prediabetes"), Fractures (right hip/ right shoulder), HTN, Hyperlipidemia, Malignancy (left breast CA) Denies: Chronic Kidney Disease - Surgical History Surgical History: Coronary Stent (x2) - Family History Family History: States: Unknown Family Hx - Home Medications Home Medications: Ambulatory Orders Medication Instructions Recorded RX: Aspirin [Lo-Dose Aspirin EC] 81 mg PO DAILY 03/14/18 RX: Atorvastatin [Lipitor] 40 mg PO DAILY 03/14/18 RX: Lisinopril/Hydrochlorothiazide 1 each PO DAILY 03/14/18 [Lisinopril-Hctz 10-12.5 mg Tab] RX: Metoprolol Succinate XL 25 mg PO DAILY 03/14/18 [Toprol XL] RX: metFORMIN [glucOPHAGE] 500 mg PO BID 03/14/18 - Allergies Allergies/Adverse Reactions: Allergies Allergy/AdvReac Type Severity Reaction Status Date / Time clindamycin Allergy RASH Verified 06/02/18 15:35 erythromycin base Allergy RASH Verified 06/02/18 15:35 pregabalin [From Lyrica] Allergy RASH Verified 06/02/18 15:35 Review of Systems ROS Statement: Except As Marked, All Systems Reviewed And Found Negative ENT: Positive for: Other (left facial abrasions) Cardiovascular: Negative for: Chest Pain, Palpitations Musculoskeletal: Negative for: Shoulder Pain (bilaterally), Other (bilateral hip pain) Neurological: Negative for: Dizziness, Other (LOC) Physical Exam - Reviewed Nursing Documentation Reviewed: Yes Vital Signs Reviewed: Yes - Physical Exam Appears: Positive for: No Acute Distress Head Exam: Negative for: ATRAUMATIC Skin: Positive for: Normal Color Eye Exam: Positive for: EOMI, Normal appearance, PERRL ENT: Positive for: Normal ENT Inspection Neck: Positive for: Normal, Supple Cardiovascular/Chest: Positive for: Regular Rate, Rhythm Respiratory: Positive for: Normal Breath Sounds Gastrointestinal/Abdominal: Positive for: Normal Exam Back: Positive for: Normal Inspection Extremity: Positive for: Tenderness (left wrist), Swelling (left wrist). Negative for: Deformity Neurologic/Psych: Positive for: Alert, paste up artist II-XII (grossly intact), Oriented (x3), Other (left jainism abrasion without palpable deformity; superficial abrasion and laceration to submental area). Negative for: Motor/Sensory Deficits, Aphasia - Laboratory Results Result Diagrams: 06/02/18 20:49 - ECG O2 Sat by Pulse Oximetry: 98 (RA) Pulse Ox Interpretation: Normal Medical Decision Making Medical Decision Making: Time: 1554 Initial Plan: Multiple abrasions appear as mechanical fall injuries. CT head and maxillofacial without contrast ordered, in addition, to left wrist XR. Right shoulder and left hip with no deformity present. No indication for shoulder or hip XR at this time. Time: 1957 --CT head FINDINGS: HEMORRHAGE: No intracranial hemorrhage. BRAIN: No mass effect or edema. Cortical and cerebellar atrophy, periventricular small vessel disease. VENTRICLES: Unremarkable. No hydrocephalus. CALVARIUM: Unremarkable. Hyperostotic changes throughout the calvarium. No fracture identified. PARANASAL SINUSES: Unremarkable as visualized. No significant inflammatory changes. MASTOID AIR CELLS: Unremarkable as visualized. No inflammatory changes. OTHER FINDINGS: None. IMPRESSION: No acute intracranial abnormalities. No significant findings to account for the clinical presentation.No significant interval change compared to the prior examination(s). Time: 1705 --CT maxillofacial FINDINGS: NASAL BONES: Unremarkable. ORBITS: Unremarkable. PARANASAL SINUSES/ MASTOIDS: Clear. MAXILLA: Unremarkable. MANDIBLE/ TEMPOROMANDIBULAR JOINTS: Unremarkable. SKULL BASE: Unremarkable. TEMPORAL BONES: Middle ears and mastoid grossly unremarkable. OTHER FINDINGS: None. IMPRESSION: Unremarkable non contrast enhanced CT of the maxillofacial bones. Time: 1735 --XR left wrist FINDINGS: BONES: Acute, comminuted intra-articular fracture distal left radius. Adjacent carpal bones are unaffected, unremarkable. JOINTS: Normal. No dislocation. SOFT TISSUES: Soft tissue swelling attests to the acuity of the fracture. OTHER FINDINGS: None. IMPRESSION: Acute, comminuted distal left radial fracture with an intra-articular component. Scribe Attestation: Documented by Elke Tarango, acting as a scribe for Km Newman MD. Provider Scribe Attestation: All medical record entries made by the Scribe were at my direction and personally dictated by me. I have reviewed the chart and agree that the record accurately reflects my personal performance of the history, physical exam, medical decision making, and the department course for this patient. I have also personally directed, reviewed, and agree with the discharge instructions and disposition. Disposition - Clinical Impression Clinical Impression: Wrist fracture - Patient ED Disposition Is Patient to be Admitted: Yes - Disposition Disposition Time: 17:00 Condition: FAIR
--- NOTE | 2018-06-02 17:01 | CT ---
Date of service: 06/02/2018 PROCEDURE: CT HEAD WITHOUT CONTRAST. HISTORY: r/o bleed COMPARISON: 12/23/2015. TECHNIQUE: Axial computed tomography images were obtained through the head/brain without intravenous contrast. Supplemental Coronal and Sagittal projections created and reviewed. Radiation dose: Total exam DLP = 1620.84 mGy-cm. This CT exam was performed using one or more of the following dose reduction techniques: Automated exposure control, adjustment of the mA and/or kV according to patient size, and/or use of iterative reconstruction technique. FINDINGS: HEMORRHAGE: No intracranial hemorrhage. BRAIN: No mass effect or edema. Cortical and cerebellar atrophy, periventricular small vessel disease. VENTRICLES: Unremarkable. No hydrocephalus. CALVARIUM: Unremarkable. Hyperostotic changes throughout the calvarium. No fracture identified. PARANASAL SINUSES: Unremarkable as visualized. No significant inflammatory changes. MASTOID AIR CELLS: Unremarkable as visualized. No inflammatory changes. OTHER FINDINGS: None. IMPRESSION: No acute intracranial abnormalities. No significant findings to account for the clinical presentation.No significant interval change compared to the prior examination(s).
--- NOTE | 2018-06-02 17:10 | CT ---
Date of service: 06/02/2018 PROCEDURE: CT MAXILLOFACIAL BONES WITHOUT CONTRAST HISTORY: trauma COMPARISON: None available. TECHNIQUE: Contiguous axial CT images of the maxillofacial bones were obtained. Coronal and sagittal reformats were generated. Radiation dose: Total exam DLP = 1620.81 mGy-cm. This CT exam was performed using one or more of the following dose reduction techniques: Automated exposure control, adjustment of the mA and/or kV according to patient size, and/or use of iterative reconstruction technique. FINDINGS: NASAL BONES: Unremarkable. ORBITS: Unremarkable. PARANASAL SINUSES/ MASTOIDS: Clear. MAXILLA: Unremarkable. MANDIBLE/ TEMPOROMANDIBULAR JOINTS: Unremarkable. SKULL BASE: Unremarkable. TEMPORAL BONES: Middle ears and mastoid grossly unremarkable. OTHER FINDINGS: None. IMPRESSION: Unremarkable non contrast enhanced CT of the maxillofacial bones.
--- NOTE | 2018-06-02 17:38 | RAD ---
Date of service: 06/02/2018 PROCEDURE: Left Wrist Radiographs. HISTORY: trauma COMPARISON: None. FINDINGS: BONES: Acute, comminuted intra-articular fracture distal left radius. Adjacent carpal bones are unaffected, unremarkable. JOINTS: Normal. No dislocation. SOFT TISSUES: Soft tissue swelling attests to the acuity of the fracture. OTHER FINDINGS: None. IMPRESSION: Acute, comminuted distal left radial fracture with an intra-articular component.
[2018-06-02] MEDS ORDERED: Tdap Vaccine 0.5 ml Vial (10-64 yrs) IM ONE (18:24)
[2018-06-02] MEDS ORDERED: Tetanus/Diphtheria Toxoids 0.5 ml Syringe IM ONE ×2 (19:34→19:52)
[2018-06-02 21:03] LABS: BASO % 0.4 % (0.0-2.0); EOS # 0.1 K/uL (0.0-0.7); EOS % 1.3 % (0.0-4.0); HEMOGLOBIN 11.1 g/dL (12.0-16.0); LYMPH # 1.3 K/uL (1.0-4.3); LYMPH % 17.2 % (20.0-40.0); MEAN CELL VOLUME 91.2 fl (81.0-99.0); MEAN CORPUSCULAR HEMOGLOBIN 30.6 pg (27.0-31.0); MEAN CORPUSCULAR HGB CONC 33.6 g/dL (33.0-37.0); MEAN PLATELET VOLUME 8.3 fl (7.2-11.7); MONO # 0.6 K/uL (0.0-0.8); MONO % 7.4 % (0.0-10.0); NEUT # 5.5 K/uL (1.8-7.0); NEUT % 73.7 % (50.0-75.0); RBC 3.62 Mil/uL (3.80-5.20); RED CELL DISTRIBUTION WIDTH 12.6 % (11.5-14.5); WHITE BLOOD COUNT 7.4 K/uL (4.8-10.8)
[2018-06-02 21:08] LABS: PROTHROMBIN TIME 10.8 Seconds (9.8-13.1)
[2018-06-02 21:20] LABS: ALB/GLOB RATIO 1.4 (1.0-2.1); ALBUMIN 3.7 g/dL (3.5-5.0); CALCIUM 9.7 mg/dL (8.4-10.2)
--- NOTE | 2018-06-03 08:30 | RAD ---
Date of service: 06/02/2018 HISTORY: Wrist fracture COMPARISON: No prior. TECHNIQUE: Chest PA and lateral FINDINGS: LUNGS: No active pulmonary disease. PLEURA: No significant pleural effusion identified. No pneumothorax apparent. CARDIOVASCULAR: No aortic atherosclerotic calcification present. Normal cardiac size. No pulmonary vascular congestion. OSSEOUS STRUCTURES: No significant abnormalities. VISUALIZED UPPER ABDOMEN: Normal. OTHER FINDINGS: None. IMPRESSION: No active disease.
[2018-06-03] MEDS ORDERED: [UNRECOGNIZED DRUG - OTHER] PO SCH (09:00)
[2018-06-03] MEDS ORDERED: HYDROCHLOROTHIAZIDE PO SCH (09:00)
[2018-06-03] MEDS ORDERED: LISINOPRIL PO SCH (09:00)
[2018-06-03] MEDS: Metoprolol Succinate 25 mg XL Tab PO SCH (09:54)
[2018-06-03] MEDS: Enoxaparin 40 mg Syringe SC SCH (11:01)
--- NOTE | 2018-06-03 11:17 | CP.PCM.HP ---
History of Present Illness - History of Present Illness History of Present Illness: This 78-year-old female came to the emergency room following an accidental fall on the street during which she has injured her left wrist. The patient has had multiple falls within the last year and a half initially i njuring her hip that required surgical fixation and a right humeral fracture that required surgical fixation in September 2017 and now left wrist injury which has fractured bones in her left wrist. She has a long medical history that consists of diabetes mellitus and coronary artery disease. She suffered an acute lateral wall myocardial infarction more than 8 years back. She has had a history of shireen ast malignancy and has had left mastectomy followed by chemotherapy and radiation and at present this is in remission. The patient denies anginal episodes or symptoms of congestive cardiac failure. Physical examination shows an elderly pleasant female who has moderate degree of discomfort due to the left wrist injury. The left wrist is in a brace. She was afebrile. She was alert awake and coherent. She breathe at 16 breaths/min and could carry on a conversation. Her heart rate was 76 bpm regular and her blood pressure was 116/74 mmHg. Her jugular venous pressure was not elevated and ther e was no evidence of pedal edema. Pedal pulses were well felt. There were no carotid bruits. There was evidence of left mastectomy. First and second heart sounds were normal there was no murmur or gallop. There were no rales. Her abdomen was soft liver and spleen were not palpable. Her electrocardiogram showed sinus rhythm with evidence of an old lateral wall myocardial infarction with Q waves in lead I and aVL. Echocardiogram of July 2017 showed borderline left ventricular systolic function with severe hypokinesia of lateral wall. A nuclear stress test in July 2017 did not show any evidence of potentially ischemic myocardium. Her labs were noted. Her BUN/creatinine were 28 and 1.4 mg percent with a GFR of 37. Impression: Fall with bony injury to left wrist. Diabetes mellitus. Stable coronary artery disease. Status post ablation for reentrant nicol tachycardia. Status post mastectomy for carcinoma of the breast which is in remission. The patient is stable from cardiovascular point of view to proceed with the planned surgical correction of left wrist injury. Present on Admission - Present on Admission Any Indicators Present on Admission: No Past Patient History - Infectious Disease Hx of Infectious Diseases: None - Past Medical History & Family History Past Medical History?: Yes - Past Social History Smoking Status: Never Smoked - CARDIAC Hx Cardiac Disorders: Yes Hx Hypertension: Yes - PULMONARY Hx Respiratory Disorders: Yes - NEUROLOGICAL Hx Neurological Disorder: No - HEENT Hx HEENT Problems: No - RENAL Hx Chronic Kidney Disease: No - ENDOCRINE/METABOLIC Hx Endocrine Disorders: Yes - HEMATOLOGICAL/ONCOLOGICAL Hx Blood Disorders: Yes Hx Anemia: Yes - INTEGUMENTARY Hx Dermatological Problems: No - MUSCULOSKELETAL/RHEUMATOLOGICAL Hx Musculoskeletal Disorders: No Hx Falls: Yes Hx Fractures: Yes - GASTROINTESTINAL Hx Gastrointestinal Disorders: No - GENITOURINARY/GYNECOLOGICAL Hx Genitourinary Disorders: No - PSYCHIATRIC Hx Psychophysiologic Disorder: No Hx Substance Use: No - SURGICAL HISTORY Hx Coronary Stent: Yes (x2) Hx Mastectomy: Yes (left) Hx Orthopedic Surgery: Yes - ANESTHESIA Hx Anesthesia: Yes Hx Anesthesia Reactions: No Hx Malignant Hyperthermia: No Meds Allergies/Adverse Reactions: Allergies Allergy/AdvReac Type Severity Reaction Status Date / Time clindamycin Allergy RASH Verified 06/02/18 15:35 erythromycin base Allergy RASH Verified 06/02/18 15:35 pregabalin [From Lyrica] Allergy RASH Verified 06/02/18 15:35 Results - Vital Signs Recent Vital Signs: Last Vital Signs Temp 97.7 F 06/03/18 08:09 Pulse 62 06/03/18 09:59 Resp 20 06/03/18 08:09 BP 157/79 H 06/03/18 09:59 Pulse Ox 94 L 06/03/18 08:09 - Labs Result Diagrams: 06/02/18 20:49 06/02/18 20:49 Labs: Laboratory Results - last 24 hr 06/02/18 06/02/18 06/02/18 19:46 20:49 20:49 WBC 7.4 RBC 3.62 L Hgb 11.1 L Hct 33.0 L MCV 91.2 MCH 30.6 MCHC 33.6 RDW 12.6 Plt Count 190 MPV 8.3 Neut % (Auto) 73.7 Lymph % (Auto) 17.2 L [place] % (Auto) 7.4 Eos % (Auto) 1.3 Baso % (Auto) 0.4 Neut # (Auto) 5.5 Lymph # (Auto) 1.3 [place] # (Auto) 0.6 Eos # (Auto) 0.1 Baso # (Auto) 0.0 PT INR Sodium 141 Potassium 3.9 Chloride 103 Carbon Dioxide 26 Anion Gap 16 BUN 28 H Creatinine 1.4 H Est GFR ( Amer) 44 Est GFR (Non-Af Amer) 37 POC Glucose (mg/dL) 93 Random Glucose 97 Calcium 9.7 Total Bilirubin 0.6 AST 21 ALT 23 Alkaline Phosphatase 91 Total Protein 6.4 Albumin 3.7 Globulin 2.7 Albumin/Globulin Ratio 1.4 06/02/18 06/02/18 06/03/18 20:49 22:13 05:25 WBC RBC Hgb Hct MCV MCH MCHC RDW Plt Count MPV Neut % (Auto) Lymph % (Auto) [place] % (Auto) Eos % (Auto) Baso % (Auto) Neut # (Auto) Lymph # (Auto) [place] # (Auto) Eos # (Auto) Baso # (Auto) PT 10.8 INR 1.0 Sodium Potassium Chloride Carbon Dioxide Anion Gap BUN Creatinine Est GFR ( Amer) Est GFR (Non-Af Amer) POC Glucose (mg/dL) 90 100 Random Glucose Calcium Total Bilirubin AST ALT Alkaline Phosphatase Total Protein Albumin Globulin Albumin/Globulin Ratio 06/03/18 10:54 WBC RBC Hgb Hct MCV MCH MCHC RDW Plt Count MPV Neut % (Auto) Lymph % (Auto) [place] % (Auto) Eos % (Auto) Baso % (Auto) Neut # (Auto) Lymph # (Auto) [place] # (Auto) Eos # (Auto) Baso # (Auto) PT INR Sodium Potassium Chloride Carbon Dioxide Anion Gap BUN Creatinine Est GFR ( Amer) Est GFR (Non-Af Amer) POC Glucose (mg/dL) 115 H Random Glucose Calcium Total Bilirubin AST ALT Alkaline Phosphatase Total Protein Albumin Globulin Albumin/Globulin Ratio
--- NOTE | 2018-06-03 13:23 | CARD ---
APPROVED REPORT Date of service: 06/02/2018 EKG Measurement Heart [id number] <Conclusion> Sinus rhythm with 1st degree AV block Right bundle branch block Lateral infarct, age undetermined Abnormal ECG
--- NOTE | 2018-06-03 18:38 | CON ---
DATE: 06/03/2018 REASON FOR CONSULTATION: Left wrist trauma. HISTORY OF PRESENT ILLNESS: This is 78-year-old right hand dominant female who sustained a slip and fall outside landing on her left wrist. The patient presents to [facility] with deformity and pain at the wrist. Initial x-rays confirmed comminuted displaced distal radius fracture. 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 Had a history of 2 fractures on the Left wrist before, treated in cast PHYSICAL EXAMINATION: EXTREMITIES: Left wrist has gross deformity of the wrist. Skin is intact, tender to palpation. The patient has difficulty with flexion and extension. Neurovascularly intact. Can make a full fist. LABORATORY DATA: X-rays of the left wrist were seen and reviewed and findings showed volar body displaced, multi-fragmented distal radius fracture with loss of radial height and tone. ASSESSMENT: Left wrist displaced distal radius fracture, . PLAN: I discussed the above findings with the patient. I recommended surgery which will include open reduction and internal fixation. The patient will be scheduled for surgery pending medical optimization. Arslan Cohen MD DARCY
[2018-06-04] MEDS: Metoprolol Succinate 25 mg XL Tab PO SCH (09:18)
[2018-06-04] MEDS: Enoxaparin 40 mg Syringe SC SCH (09:19)
--- NOTE | 2018-06-04 13:24 | CP.PCM.PN ---
Subjective - Date & Time of Evaluation Date of Evaluation: 06/04/18 Time of Evaluation: 11:45 - Subjective Subjective: The patient was found resting comfortably in bed. Her vital signs are stable. The patient is scheduled to have surgical intervention on the 19th a.m. Aspirin was discontinued. Labs were ordered for tomorrow. Objective - Vital Signs/Intake and Output Vital Signs (last 24 hours): Temp Pulse Resp BP Pulse Ox 98.0 F 74 19 115/78 96 06/04/18 08:50 06/04/18 08:50 06/04/18 08:50 06/04/18 09:23 06/04/18 08:50 - Medications Medications: Current Medications Acetaminophen (Tylenol 325mg Tab) 325 mg PO Q6 PRN PRN Reason: Pain, moderate (4-7) Acetaminophen (Tylenol 325mg Tab) 650 mg PO Q6 PRN PRN Reason: Pain, severe (8-10) Last Admin: 06/03/18 11:00 Dose: 650 mg Atorvastatin Calcium (Lipitor) 40 mg PO DAILY [facility] Last Admin: 06/04/18 09:18 Dose: 40 mg Enoxaparin Sodium (Lovenox) 40 mg SC DAILY [facility]; Protocol Last Admin: 06/04/18 09:19 Dose: 40 mg Hydrochlorothiazide (Microzide) 12.5 mg PO DAILY [facility] Last Admin: 06/04/18 09:19 Dose: 12.5 mg Lisinopril (Zestril) 10 mg PO DAILY [facility] Last Admin: 06/04/18 09:23 Dose: 10 mg Metformin HCl (Glucophage) 500 mg PO BID [facility] Last Admin: 06/04/18 09:18 Dose: 500 mg Metoprolol Succinate (Toprol Xl) 25 mg PO DAILY [facility] Last Admin: 06/04/18 09:18 Dose: 25 mg - Labs Labs: 06/02/18 20:49 06/02/18 20:49 PT 10.8 Seconds (9.8-13.1) 06/02/18 20:49 INR 1.0 06/02/18 20:49
[2018-06-05] MEDS: Metoprolol Succinate 25 mg XL Tab PO SCH (08:55)
[2018-06-05] MEDS: Enoxaparin 40 mg Syringe SC SCH (08:55)
[2018-06-05 09:31] LABS: HEMOGLOBIN 10.6 g/dL (12.0-16.0); MEAN CELL VOLUME 90.3 fl (81.0-99.0); MEAN CORPUSCULAR HEMOGLOBIN 31.1 pg (27.0-31.0); MEAN CORPUSCULAR HGB CONC 34.5 g/dL (33.0-37.0); RBC 3.41 Mil/uL (3.80-5.20); RED CELL DISTRIBUTION WIDTH 12.5 % (11.5-14.5); WHITE BLOOD COUNT 4.9 K/uL (4.8-10.8)
[2018-06-05 09:45] LABS: ALB/GLOB RATIO 1.3 (1.0-2.1); ALBUMIN 3.4 g/dL (3.5-5.0); CALCIUM 9.4 mg/dL (8.4-10.2)
--- NOTE | 2018-06-05 10:11 | CP.PCM.PN ---
Subjective - Date & Time of Evaluation Date of Evaluation: 06/05/18 Time of Evaluation: 08:30 - Subjective Subjective: Patient seen and examined at beside comfortable. Pain is well controlled. Medically/cardiac cleared for surgery. No other complaints. Objective - Vital Signs/Intake and Output Vital Signs (last 24 hours): Temp Pulse Resp BP Pulse Ox 97.7 F 71 19 136/77 95 06/05/18 08:11 06/05/18 08:55 06/05/18 08:11 06/05/18 08:55 06/05/18 08:11 - Medications Medications: Current Medications Acetaminophen (Tylenol 325mg Tab) 325 mg PO Q6 PRN PRN Reason: Pain, moderate (4-7) Acetaminophen (Tylenol 325mg Tab) 650 mg PO Q6 PRN PRN Reason: Pain, severe (8-10) Last Admin: 06/03/18 11:00 Dose: 650 mg Atorvastatin Calcium (Lipitor) 40 mg PO DAILY [facility] Last Admin: 06/05/18 08:55 Dose: 40 mg Enoxaparin Sodium (Lovenox) 40 mg SC DAILY [facility]; Protocol Last Admin: 06/05/18 08:55 Dose: 40 mg Hydrochlorothiazide (Microzide) 12.5 mg PO DAILY [facility] Last Admin: 06/05/18 08:55 Dose: 12.5 mg Lisinopril (Zestril) 10 mg PO DAILY [facility] Last Admin: 06/05/18 08:54 Dose: 10 mg Metformin HCl (Glucophage) 500 mg PO BID [facility] Last Admin: 06/05/18 08:54 Dose: 500 mg Metoprolol Succinate (Toprol Xl) 25 mg PO DAILY [facility] Last Admin: 06/05/18 08:55 Dose: 25 mg - Labs Labs: 06/05/18 09:07 06/05/18 09:07 PT 10.8 Seconds (9.8-13.1) 06/02/18 20:49 INR 1.0 06/02/18 20:49 - Extremities Exam Additional comments: LUE: cock-up wrist splint in place no lesions volarly sensation and motor intact MN/UN/RN 2 sec cap refill all fingers Assessment and Plan (1) Fracture of left distal radius Assessment & Plan: -Plan for L wrist ORIF tomorrow -NPO pMN -Medical/cardiac clearance appreciated -maintain splint/ NWB LUE -above d/w Dr. Cohen in agreement Status: Acute
[2018-06-05] MEDS ORDERED: Potassium Chloride 20 mEq ER Tab PO ONE (11:05)
--- NOTE | 2018-06-05 11:09 | CP.PCM.PN ---
Subjective - Date & Time of Evaluation Date of Evaluation: 06/05/18 Time of Evaluation: 10:00 - Subjective Subjective: The patient has slept well and was found sitting up in bed having eaten her breakfast. Her left wrist pain has been fairly well controlled with the splint and oral analgesics. Her vital signs were stable. Her labs show mild hypokalemia and mild azotemia. There is excellent blood sugar control. Potassium was ordered for hypokalemia. The patient is stable to proceed with the planned surgery on the left wrist under necessary anesthesia. Objective - Vital Signs/Intake and Output Vital Signs (last 24 hours): Temp Pulse Resp BP Pulse Ox 97.7 F 71 19 136/77 95 06/05/18 08:11 06/05/18 08:55 06/05/18 08:11 06/05/18 08:55 06/05/18 08:11 - Medications Medications: Current Medications Acetaminophen (Tylenol 325mg Tab) 325 mg PO Q6 PRN PRN Reason: Pain, moderate (4-7) Acetaminophen (Tylenol 325mg Tab) 650 mg PO Q6 PRN PRN Reason: Pain, severe (8-10) Last Admin: 06/03/18 11:00 Dose: 650 mg Atorvastatin Calcium (Lipitor) 40 mg PO DAILY [facility] Last Admin: 06/05/18 08:55 Dose: 40 mg Enoxaparin Sodium (Lovenox) 40 mg SC DAILY [facility]; Protocol Last Admin: 06/05/18 08:55 Dose: 40 mg Hydrochlorothiazide (Microzide) 12.5 mg PO DAILY [facility] Last Admin: 06/05/18 08:55 Dose: 12.5 mg Lisinopril (Zestril) 10 mg PO DAILY [facility] Last Admin: 06/05/18 08:54 Dose: 10 mg Metformin HCl (Glucophage) 500 mg PO BID [facility] Last Admin: 06/05/18 08:54 Dose: 500 mg Metoprolol Succinate (Toprol Xl) 25 mg PO DAILY [facility] Last Admin: 06/05/18 08:55 Dose: 25 mg Potassium Chloride (K-Dur 20 Meq Er Tab) 20 meq PO ONCE ONE Stop: 06/05/18 11:06 - Labs Labs: 06/05/18 09:07 06/05/18 09:07 PT 10.8 Seconds (9.8-13.1) 06/02/18 20:49 INR 1.0 06/02/18 20:49
[2018-06-06] MEDS: Metoprolol Succinate 25 mg XL Tab PO SCH (09:15)
--- NOTE | 2018-06-06 11:30 | CP.PCM.PN ---
Subjective - Date & Time of Evaluation Date of Evaluation: 06/06/18 Time of Evaluation: 11:00 - Subjective Subjective: Patient was found resting comfortably in bed. She is scheduled to go to the OR at noon. She had a irregularly irregular heart rate at 76 bpm with a blood pressure of 124/74 mmHg. There was no evidence of volume overload. The patient is stable to proceed with her planned surgical procedure under necessary anesthesia. Objective - Vital Signs/Intake and Output Vital Signs (last 24 hours): Temp Pulse Resp BP Pulse Ox 97.6 F 65 20 150/76 97 06/06/18 08:24 06/06/18 08:24 06/06/18 08:24 06/06/18 09:15 06/06/18 08:24 - Medications Medications: Current Medications Acetaminophen (Tylenol 325mg Tab) 325 mg PO Q6 PRN PRN Reason: Pain, moderate (4-7) Acetaminophen (Tylenol 325mg Tab) 650 mg PO Q6 PRN PRN Reason: Pain, severe (8-10) Last Admin: 06/05/18 22:17 Dose: 650 mg Atorvastatin Calcium (Lipitor) 40 mg PO DAILY [facility] Last Admin: 06/05/18 08:55 Dose: 40 mg Enoxaparin Sodium (Lovenox) 40 mg SC DAILY [facility]; Protocol Last Admin: 06/05/18 08:55 Dose: 40 mg Hydrochlorothiazide (Microzide) 12.5 mg PO DAILY [facility] Last Admin: 06/06/18 09:15 Dose: 12.5 mg Lisinopril (Zestril) 10 mg PO DAILY [facility] Last Admin: 06/06/18 09:15 Dose: 10 mg Metformin HCl (Glucophage) 500 mg PO BID [facility] Last Admin: 06/06/18 09:14 Dose: Not Given Metoprolol Succinate (Toprol Xl) 25 mg PO DAILY [facility] Last Admin: 06/06/18 09:15 Dose: 25 mg - Labs Labs: 06/05/18 09:07 06/05/18 09:07 PT 10.8 Seconds (9.8-13.1) 06/02/18 20:49 INR 1.0 06/02/18 20:49
[2018-06-06] MEDS ORDERED: Lidocaine 4% (Laryng-O-Jet) Kit MM ONE (12:44)
[2018-06-06] MEDS ORDERED: Rocuronium 10 mg/ml (5 ml) ONE (12:44)
[2018-06-06] MEDS ORDERED: Succinylcholine Chloride 20 mg/ml Syr (5 ml) IV ONE (12:44)
[2018-06-06] MEDS ORDERED: Etomidate 20 mg/10ml Inj IV ONE (12:44)
[2018-06-06] MEDS ORDERED: Lidocaine 2% Inj (20ml) ONE (12:53)
[2018-06-06] MEDS ORDERED: Ropivacaine 0.5% 30ML IV ONE (13:06)
[2018-06-06] MEDS ORDERED: Sevoflurane - Inhalation Anesthetic Liq (250 ml) ONE (13:09)
[2018-06-06] MEDS ORDERED: Lactated Ringer's 1,000 ML IV ONE (13:16)
[2018-06-06] MEDS ORDERED: Dexamethasone 4 mg/1 ml ONE (14:02)
[2018-06-06] MEDS ORDERED: Neostigmine 1:1000 (1 mg/ml) Inj ONE (14:31)
[2018-06-06] MEDS ORDERED: Bacitracin Ointment 30 GM TUBE ONE (14:39)
[2018-06-06] MEDS ORDERED: HYDROmorphone 0.5 mg/0.5 ml ISec IVP PRN (14:59)
--- NOTE | 2018-06-06 15:46 | PCM.SURG1 ---
Surgeon's Initial Post Op Note - Surgeon's Notes Surgeon: Arslan Cohen MD Services Coordinator: Hermes Connor PA-C Type of Anesthesia: General Endo Anesthesia Administered By: Jermaine Watson MD Pre-Operative Diagnosis: Left distal radius fracture Operative Findings: see complete operative report Post-Operative Diagnosis: as above Operation Performed: Left distal radius fracture open reduction internal fixation, placement of short arm splint Specimen/Specimens Removed: none Estimated Blood Loss: EBL {In ML}: 1 Blood Products Given: N/A Drains Used: No Drains Post-Op Condition: Good Date of Surgery/Procedure: 06/06/18 Time of Surgery/Procedure: 14:01
--- NOTE | 2018-06-06 17:16 | RAD ---
Date of service: 06/06/2018 PROCEDURE: Left Wrist Radiographs. HISTORY: s/p ORIF wrist, pt in pacu COMPARISON: None. FINDINGS: BONES: Status post open reduction internal fixation. Major fracture fragments are anatomically aligned. No evidence of orthopedic hardware failure. JOINTS: Normal. No dislocation. SOFT TISSUES: Normal. OTHER FINDINGS: None. IMPRESSION: Satisfactory postoperative status.
--- NOTE | 2018-06-06 21:18 | PCM.ANESB4 ---
Infraclavicular Block - Femoral Nerve Block Date of Procedure: 06/06/18 Anesthesiologist: Karan Watson Pre-Procedure Diagnosis: Left wrist fracture Post-Procedure Diagnosis: Same Procedure Performed: Brachial Plexus at the Infraclavicular area Left (Supraclavicular) - Procedure Infraclavicular Block: The procedure was explained to the patient that it is for the post-operative p ain management. Consent was obtained after a thorough discussion with the patient regarding the benefits and possible complications of local anesthetic block of the brachial plexus at the infraclavicular area. The patient was brought to the operating room and standard monitors were applied. Time-out was held with the circulating nurse to confirm the correct surgery and the appropriate block. After applying oxygen by nasal cannula and administering IV Sedation, patient's head was gently rotated away from the operative ___LEFT shoulder and the area medial to the coracoid process and inferior to the clavicle was carefully palpated. The ultrasound transducer was then applied to the skin in the transverse plane and the brachial plexus was visualized surrounding the axillary artery and deep to the pectoralis major and minor muscles. After thorough identification, this area was prepped with Chloraprep solution three times and 1 % Lidocaine was injected subcutaneously for topical anesthesia. At this point, a #21 gauge Stimuplex 4-inch needle was inserted cephalad to the ultrasound transducer and inferior to the clavicle in-plane towards the posterior aspect of the axillary artery. Needle advancement was performed carefully under ultrasound visualization. After repeated negative aspiration, __5___cc of __0.5___% ropivacaine was injected and this was followed with __25____ cc of ___0.5____ % ___ropivacaine___. Under ultrasound guidance the local anesthetics were observed surrounding the cords of the brachial plexus. The needle was removed intact and sterile dressing was applied. The patient had stable vital signs, was conscious and in no apparent distress. The patient tolerated the infraclavicular block of the brachial plexus well with stable vital signs was prepared for subsequent surgery.
[2018-06-07 06:47] LABS: HEMOGLOBIN 10.9 g/dL (12.0-16.0); MEAN CELL VOLUME 90.6 fl (81.0-99.0); MEAN CORPUSCULAR HGB CONC 34.2 g/dL (33.0-37.0); RBC 3.51 Mil/uL (3.80-5.20); RED CELL DISTRIBUTION WIDTH 12.4 % (11.5-14.5); WHITE BLOOD COUNT 5.9 K/uL (4.8-10.8)
[2018-06-07 07:13] LABS: CALCIUM 9.2 mg/dL (8.4-10.2)
[2018-06-07 08:17] VITALS: BP 113/66; RESP 19; TEMP 98
--- NOTE | 2018-06-07 08:35 | CP.PCM.PN ---
Subjective - Date & Time of Evaluation Date of Evaluation: 06/07/18 Time of Evaluation: 08:00 - Subjective Subjective: Patient seen and examined at bedside comfortable. Pain is well controlled. No acute events overnight. Denies CP/SOB/dizziness/fever. Objective - Vital Signs/Intake and Output Vital Signs (last 24 hours): Temp Pulse Resp BP Pulse Ox 98.0 F 65 19 113/66 96 06/07/18 08:16 06/07/18 08:16 06/07/18 08:16 06/07/18 08:16 06/07/18 08:16 - Medications Medications: Current Medications Acetaminophen (Tylenol 325mg Tab) 325 mg PO Q6 PRN PRN Reason: Pain, moderate (4-7) Acetaminophen (Tylenol 325mg Tab) 650 mg PO Q6 PRN PRN Reason: Pain, severe (8-10) Last Admin: 06/05/18 22:17 Dose: 650 mg Atorvastatin Calcium (Lipitor) 40 mg PO DAILY [facility] Last Admin: 06/06/18 17:24 Dose: Not Given Cholecalciferol (Vitamin D) 2,000 intlu PO DAILY [facility] Enoxaparin Sodium (Lovenox) 40 mg SC DAILY [facility]; Protocol Last Admin: 06/05/18 08:55 Dose: 40 mg Hydrochlorothiazide (Microzide) 12.5 mg PO DAILY [facility] Last Admin: 06/06/18 09:15 Dose: 12.5 mg Lisinopril (Zestril) 10 mg PO DAILY [facility] Last Admin: 06/06/18 09:15 Dose: 10 mg Meperidine HCl (Demerol) 12.5 mg IVP Q5M PRN PRN Reason: Shivering/Rigor Metformin HCl (Glucophage) 500 mg PO BID [facility] Last Admin: 06/06/18 18:38 Dose: Not Given Metoprolol Succinate (Toprol Xl) 25 mg PO DAILY [facility] Last Admin: 06/06/18 09:15 Dose: 25 mg - Labs Labs: 06/07/18 06:10 06/07/18 06:10 PT 10.8 Seconds (9.8-13.1) 06/02/18 20:49 INR 1.0 06/02/18 20:49 - Extremities Exam Additional comments: LUE: short arm splint CDI sensation and motor intact MN/UN/RN 2 sec cap refill all fingers Assessment and Plan (1) Fracture of left distal radius Assessment & Plan: POD#1 s/p L wrist ORIF -extended hospital stay due to acute swelling post injury delaying surgery -postop L wrist xrays show hardware intact and fracture in anatomic alignment -PT/OT transfer/ambulation training -WILLIAM URIOSTEGUI -orthopedically stable for discharge once evaluated by PT/OT -above d/w Dr. Cohen in agreement Status: Acute
[2018-06-07] MEDS: Metoprolol Succinate 25 mg XL Tab PO SCH (08:47)
[2018-06-07] MEDS ORDERED: Cholecalciferol 1,000 INTLU TAB PO SCH (09:00)
--- NOTE | 2018-06-07 09:12 | CP.PCM.PN ---
Subjective - Date & Time of Evaluation Date of Evaluation: 06/07/18 Time of Evaluation: 08:50 - Subjective Subjective: The patient was found resting comfortably in the bed this morning. The patient reported having had a comfortable night with minimal pain in the left wrist. She has been keeping her left wrist elevated with ice bags. Her vital signs were stable. She was seen by orthopedic PA and was found to be stable as well. Patient prefers to use Tylenol for pain relief which she has used for earlier fractured shoulder and hip. The patient will return home today and an appointment will be made for her to see the surgeon. guest services associate is in the process of arranging home health aide and a visiting nurse. Objective - Vital Signs/Intake and Output Vital Signs (last 24 hours): Temp Pulse Resp BP Pulse Ox 98.0 F 65 19 113/66 96 06/07/18 08:16 06/07/18 08:16 06/07/18 08:16 06/07/18 08:16 06/07/18 08:16 - Medications Medications: Current Medications Acetaminophen (Tylenol 325mg Tab) 325 mg PO Q6 PRN PRN Reason: Pain, moderate (4-7) Acetaminophen (Tylenol 325mg Tab) 650 mg PO Q6 PRN PRN Reason: Pain, severe (8-10) Last Admin: 06/05/18 22:17 Dose: 650 mg Atorvastatin Calcium (Lipitor) 40 mg PO DAILY [facility] Last Admin: 06/07/18 08:46 Dose: 40 mg Cholecalciferol (Vitamin D) 2,000 intlu PO DAILY [facility] Last Admin: 06/07/18 08:47 Dose: 2,000 intlu Enoxaparin Sodium (Lovenox) 40 mg SC DAILY [facility]; Protocol Last Admin: 06/05/18 08:55 Dose: 40 mg Hydrochlorothiazide (Microzide) 12.5 mg PO DAILY [facility] Last Admin: 06/07/18 08:46 Dose: 12.5 mg Lisinopril (Zestril) 10 mg PO DAILY [facility] Last Admin: 06/07/18 08:47 Dose: 10 mg Meperidine HCl (Demerol) 12.5 mg IVP Q5M PRN PRN Reason: Shivering/Rigor Metformin HCl (Glucophage) 500 mg PO BID [facility] Last Admin: 06/07/18 08:46 Dose: 500 mg Metoprolol Succinate (Toprol Xl) 25 mg PO DAILY [facility] Last Admin: 06/07/18 08:47 Dose: 25 mg - Labs Labs: 06/07/18 06:10 06/07/18 06:10 PT 10.8 Seconds (9.8-13.1) 06/02/18 20:49 INR 1.0 06/02/18 20:49
[2018-06-07] MEDS: Enoxaparin 40 mg Syringe SC SCH (09:59)
--- NOTE | 2018-06-07 10:50 | CP.PCM.DIS ---
Provider - Provider Date of Admission: 06/02/18 19:35 Attending physician: Jluis Rogers MD Consults: 06/02/18 19:36 Physician Consult Stat Comment: Consulting Provider: Arslan Cohen Consulting Physician: Arslan Cohen Reason for Consult: Wrist fracture 06/03/18 00:00 Case Management Referral Routine Comment: Physician Instructions: Reason For Exam: Reason for Referral: Discharge Planning Social Work Referral Routine Comment: discharge planning Physician Instructions: Reason For Exam: discharge planning Time Spent in preparation of Discharge (in minutes): 40 Hospital Course - Lab Results Lab Results: Most Recent Lab Values WBC 5.9 K/uL (4.8-10.8) 06/07/18 06:10 RBC 3.51 Mil/uL (3.80-5.20) L 06/07/18 06:10 Hgb 10.9 g/dL (12.0-16.0) L 06/07/18 06:10 Hct 31.7 % (34.0-47.0) L 06/07/18 06:10 MCV 90.6 fl (81.0-99.0) 06/07/18 06:10 MCH 31.0 pg (27.0-31.0) 06/07/18 06:10 MCHC 34.2 g/dL (33.0-37.0) 06/07/18 06:10 RDW 12.4 % (11.5-14.5) 06/07/18 06:10 Plt Count 197 K/uL (130-400) 06/07/18 06:10 MPV 8.3 fl (7.2-11.7) 06/02/18 20:49 Neut % (Auto) 73.7 % (50.0-75.0) 06/02/18 20:49 Lymph % (Auto) 17.2 % (20.0-40.0) L 06/02/18 20:49 Sutton % (Auto) 7.4 % (0.0-10.0) 06/02/18 20:49 Eos % (Auto) 1.3 % (0.0-4.0) 06/02/18 20:49 Baso % (Auto) 0.4 % (0.0-2.0) 06/02/18 20:49 Neut # (Auto) 5.5 K/uL (1.8-7.0) 06/02/18 20:49 Lymph # (Auto) 1.3 K/uL (1.0-4.3) 06/02/18 20:49 Sutton # (Auto) 0.6 K/uL (0.0-0.8) 06/02/18 20:49 Eos # (Auto) 0.1 K/uL (0.0-0.7) 06/02/18 20:49 Baso # (Auto) 0.0 K/uL (0.0-0.2) 06/02/18 20:49 PT 10.8 Seconds (9.8-13.1) 06/02/18 20:49 INR 1.0 06/02/18 20:49 Sodium 138 mmol/l (132-148) 06/07/18 06:10 Potassium 4.1 MMOL/L (3.6-5.0) 06/07/18 06:10 Chloride 100 mmol/L (98-107) 06/07/18 06:10 Carbon Dioxide 27 mmol/L (22-30) 06/07/18 06:10 Anion Gap 15 (10-20) 06/07/18 06:10 BUN 48 mg/dl (7-17) H 06/07/18 06:10 Creatinine 1.5 mg/dl (0.7-1.2) H 06/07/18 06:10 Est GFR ( Amer) 41 06/07/18 06:10 Est GFR (Non-Af Amer) 34 06/07/18 06:10 POC Glucose (mg/dL) 131 mg/dL (65-110) H 06/07/18 05:27 Random Glucose 128 mg/dL (65-105) H 06/07/18 06:10 Calcium 9.2 mg/dL (8.4-10.2) 06/07/18 06:10 Total Bilirubin 0.8 mg/dl (0.2-1.3) 06/05/18 09:07 AST 20 U/L (14-36) 06/05/18 09:07 ALT 22 U/L (9-52) 06/05/18 09:07 Alkaline Phosphatase 80 U/L (38-126) 06/05/18 09:07 Total Protein 6.1 G/DL (6.3-8.2) L 06/05/18 09:07 Albumin 3.4 g/dL (3.5-5.0) L 06/05/18 09:07 Globulin 2.7 gm/dL (2.2-3.9) 06/05/18 09:07 Albumin/Globulin Ratio 1.3 (1.0-2.1) 06/05/18 09:07 25-OH Vitamin D Total < 12.8 NG/ML (30.0-100.0) L 06/05/18 15:46 - Hospital Course Hospital Course: 78-year-old female a diabetic with a history of coronary artery disease which resulted in a lateral wall myocardial infarction more than 8 years back who came into the hospital having fallen on the sidewalk. She complained of severe pain in the left wrist and x-rays in the emergency room showed evidence of a fractured distal radius. She had an orthopedic evaluation and a decision was made that she will require open reduction and surgical fixation. The patient was hemodynamically stable. Her past history included a history of breast malignancy which was in remission and diabetes mellitus which was well controlled. She had had earlier falls and had sustained a hip fracture and right shoulder fracture all within last year and a half. 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 The patient had never manifested overt congestive cardiac failure. A nuclear stress test in July 2017 did not show any evidence of potential ischemic myocardium and an echocardiogram in July 2017 had shown preserved but borderline left ventricular systolic function. Physical examination showed an elderly anxious female is being hospitalized who was hemodynamically stable. The patient successfully underwent a surgical correction of the fracture left distal radius. On the following day the patient was fairly pain-free and stable. Her lab tests had shown able stable stage III CKD. Her postoperative hemoglobin and hematocrit were stable, electrolytes were stable. The patient was sent home and arrangements were made for home health aide and visiting nurse. The patient reported that she had adequate pain control using Tylenol during her earlier bony injuries. An appointment was made for her to see her orthopedic physician within 10 days. She will see me for a follow-up visit in the office. Her final diagnosis was fracture left distal radius secondary to a fall. Stable coronary artery disease with status post lateral wall myocardial infarction. Diabetes mellitus. Carcinoma of the breast which is in remission. Status post ablation for non-reentrant AV nicol tachycardia. Discharge Exam - Head Exam Head Exam: absent: ATRAUMATIC Discharge Plan - Follow Up Plan Condition: FAIR Disposition: HOME/ ROUTINE Instructions: Radius Fracture (DC), Open Reduction and Internal Fixation Surgery (DC), Nerve Blocks Additional Instructions: follow up with dr Cohen and dr rogers in 1 week [facility] visiting nurses [phone] Referrals: Jluis Rogers MD [Staff Provider] - Arslan Cohen MD [Medical Doctor] -
[2018-06-07 11:30] VITALS: PULSE 76; O2SAT 95
--- NOTE | 2018-06-09 05:00 | OP ---
PROCEDURE DATE: 06/06/2018 PREOPERATIVE DIAGNOSIS: Displaced left distal radius fracture, two-part. POSTOPERATIVE DIAGNOSIS: Displaced left distal radius fracture, two-part. PROCEDURE: Left distal radius open reduction and internal fixation with Synthes volar wrist plate, 91170. SURGEON: Arslan Cohen MD PROCESS CHECKER: STACEY Mirza TYPE OF ANESTHESIA: Regional and supplemental intravenous sedation. COMPLICATIONS: None. BLOOD LOSS: Minimal. SPECIMENS: None. DISPOSITION: Stable to recovery room. DESCRIPTION OF PROCEDURE: The patient was taken to the operating room and placed supine on the operating room table after regional anesthesia was given and supplemental IV sedation and well padded tourniquet was placed on the patient's left upper extremity. The extremity was then prepped and draped in standard surgical fashion. Prophylactic antibiotics were given. Timeout was performed. The proposed incision was marked out with a sterile marking pen. This was longitudinal incision along the course of the flexor carpi radialis tendon. The arm was elevated and exsanguinated, and tourniquet was inflated to 250 mmHg. An incision was made through the skin only. All superficial veins were cauterized. Dissection was performed down to the superficial layer of the flexor carpi radialis sheath that was incised along its radial most border. The FCR tendon was retracted ulnarly. The floor of the FCR sheath was incised as well along its radial most border. Dissection was then carried out between the radial artery and the flexor pollicis longus. Any intervening small branches of the radial artery were cauterized. The pronator quadratus was then visualized. It was incised in an uncinate fashion with insertion of the radius. The fracture was then visualized and explored. Due to patient's previous history of wrist fracture, she had a volar malunion of the distal fracture piece. The new fracture was proximal to the malunion site. The fracture was freed with a freer and elevated to an anatomic position. Using a combination of curettes, all early hematoma was removed. The fracture was then irrigated and reduction maneuver was performed. Volar synthes distal radius was applied to the volar aspect of radius, this was temporarily transfixed to Madi wires and its location was assessed under image intensification multiple times. Excellent placement of the plate was seen. Proximal cortical screws were placed in the plate followed by distal locking plates in standard AO technique. Once again, the fracture was assessed under x-rays and an excellent screw placement with anatomic reduction. The temporary K-wires were removed. All screws were tightened. No screws were penetrating the radial carpal joint or DRUJ. They were known to be of excellent length. The wound was then irrigated with normal saline. The DRUJ was assessed and is stable. Full passive range of motion of the wrist was obtained. Tourniquet was deflated. Hemostasis was obtained. Skin was closed with 4-0 Nylon interrupted sutures. Sterile dressing was applied consisting of fluffs, 4x4, and thumb spica splint. The patient tolerated the procedure well and was reported to recovery room with left hand in excellent condition. Arslan Cohen MD
== END 2018-06-07 14:14 | disposition home or self-care (01) | DRG 512 ==
LOC: H.ER 15:31 → H.ERHOLD 19:35 → H.MEDSURG1 22:01
PROVIDERS: ADMIT Internal Medicine Cardiovascular Disease; ATTEND Internal Medicine Cardiovascular Disease
PROC: 3E0234Z Introduction of Serum, Toxoid and Vaccine into Muscle, Percutaneous Approach (ICD-10-PCS; principal; 2018-06-02)
PROC: 0PSJ04Z Reposition Left Radius with Internal Fixation Device, Open Approach (ICD-10-PCS; 2018-06-06)
PROC: 3E0T3BZ Introduction of Anesthetic Agent into Peripheral Nerves and Plexi, Percutaneous Approach (ICD-10-PCS; 2018-06-06 12:45)
DX: S52.502A Unspecified fracture of the lower end of left radius, initial encounter for closed fracture (principal); W01.0XXA Fall on same level from slipping, tripping and stumbling without subsequent striking against object, initial encounter; Z91.81 History of falling; Y93.01 Activity, walking, marching and hiking; Y92.480 Sidewalk as the place of occurrence of the external cause; I12.9 Hypertensive chronic kidney disease with stage 1 through stage 4 chronic kidney disease, or unspecified chronic kidney disease; N18.3 Chronic kidney disease, stage 3 (moderate); J45.909 Unspecified asthma, uncomplicated; I25.2 Old myocardial infarction; I25.10 Atherosclerotic heart disease of native coronary artery without angina pectoris; Z85.3 Personal history of malignant neoplasm of breast; E78.5 Hyperlipidemia, unspecified; Z95.5 Presence of coronary angioplasty implant and graft; Z96.611 Presence of right artificial shoulder joint; Z96.642 Presence of left artificial hip joint; Z23 Encounter for immunization; Z88.1 Allergy status to other antibiotic agents; E87.6 Hypokalemia; E11.22 Type 2 diabetes mellitus with diabetic chronic kidney disease